=== PATIENT | female | born 1970 | race Caucasian/White ===

== ENCOUNTER → 2019-03-28 13:25 | Outpatient (CLI) | payer BC, SELFPAY ==
--- NOTE | ~2019-03-28 | MM_ITS ---
EXAMINATION: MM screening [facility] BI w macey HISTORY: Screening mammogram TECHNIQUE: Craniocaudal and mediolateral oblique 3-D tomosynthesis images were obtained and synthetic 2-D images were generated. CAD analysis was submitted and interpreted. COMPARISON: 04/13/2017, 04/05/2016, 03/20/2013 BREAST PARENCHYMAL COMPOSITION: The breasts are almost entirely fatty. FINDINGS: There is no evidence of suspicious mass, calcification, or architectural distortion to sugg est malignancy in either breast. There has been no suspicious interval change. IMPRESSION: 1. No mammographic evidence of malignancy. 2. Recommend routine screening mammography in one year. BI-RADS Category 1: Negative Reviewed, dictated and finalized at location A. LAY AND BANNER DESIGNER
== END ==
PROVIDERS: PCP Family Medicine; Visit Provider Obstetrics & Gynecology
DX: Z12.31 Encounter for screening mammogram for malignant neoplasm of breast (principal)
CPT/HCPCS: 77063; 77067

== ENCOUNTER → 2020-06-30 15:59 | Outpatient (CLI) | payer BC, SELFPAY ==
--- NOTE | ~2020-06-30 | MM_ITS ---
EXAMINATION: MM screening [facility] BI w macey HISTORY: Screening mammogram TECHNIQUE: Craniocaudal and mediolateral oblique 3-D tomosynthesis images were obtained and synthetic 2-D images were generated. CAD analysis was submitted and interpreted. COMPARISON: 03/28/2019, 04/13/2017, 04/05/2016 bilateral digital screening mammogram examinations BREAST PARENCHYMAL COMPOSITION: The breasts are almost entirely fatty. FINDINGS: There is no evidence of suspicious mass, calcification, or architectural distortion to sugg est malignancy in either breast. There has been no suspicious interval change. IMPRESSION: 1. No mammographic evidence of malignancy. 2. Recommend routine screening mammography in one year. BI-RADS Category 1: Negative Reviewed, dictated and finalized at location A.
== END ==
PROVIDERS: PCP Family Medicine; Visit Provider Obstetrics & Gynecology
DX: Z12.31 Encounter for screening mammogram for malignant neoplasm of breast (principal)
CPT/HCPCS: 77063; 77067

== ENCOUNTER → 2021-08-31 08:01 | Outpatient (CLI) | payer BC, SELFPAY ==
--- NOTE | ~2021-08-31 | MMUS_ITS ---
EXAMINATION: MM diagnostic [facility] BI w macey, US breast LT limited HISTORY: 9:00 left breast lump palpated by referring physician TECHNIQUE: ML, MLO and CC 3-D tomosynthesis images of both breasts were performed and synthetic 2-D i mages were generated. CAD analysis was submitted and interpreted. High resolution left targeted 8:00- 10:00 breast ultrasound was performed. COMPARISON: 06/30/2020, 03/28/2019, 04/23/2017, 04/05/2016 and 03/20/2013 bilateral screening mammogram ex aminations BREAST PARENCHYMAL COMPOSITION: The breasts are almost entirely fatty. FINDINGS: MAMMOGRAPHIC FINDINGS: No suspicious mass or architectural distortion, malignant calcification, skin thickening or retractio n or significant new or developing density is detected. ULTRASOUND: No suspicious mass, shadowing, cyst or other significant sonographic finding is noted between 8:00 an d 10:00 position in the left breast. IMPRESSION: 1. No mammographic evidence of malignancy 2. Routine annual mammographic screening is recommended. BI-RADS Category 1: Negative Reviewed, dictated and finalized at location A. IMPRESSION: 1. No mammographic evidence of malignancy 2. Routine annual mammographic screening is recommended. BI-RADS Category 1: Negative
== END ==
PROVIDERS: PCP Family Medicine; Visit Provider Obstetrics & Gynecology Gynecology
DX: N63.20 Unspecified lump in the left breast, unspecified quadrant (principal)
CPT/HCPCS: 76642; 77062; 77066; G0279

== ENCOUNTER → 2022-12-23 15:29 | Outpatient (CLI) | payer BC, SELFPAY ==
--- NOTE | ~2022-12-23 | MM_ITS ---
EXAMINATION: MM screening [facility] BI w macey HISTORY: Screening mammogram TECHNIQUE: Craniocaudal and mediolateral oblique 3-D tomosynthesis images were obtained and synthetic 2-D images were generated. CAD analysis was submitted and interpreted. COMPARISON: 08/31/2021, 06/30/2020, 03/28/2019, 04/23/2017 BREAST PARENCHYMAL COMPOSITION: The breasts are almost entirely fatty. FINDINGS: No suspicious mass, calcification, or architectural distortion are identified in either katelynn ast to suggest malignancy. There has been no suspicious interval change. IMPRESSION: 1. No mammographic evidence of malignancy. 2. Recommend routine screening mammography in one year. BI-RADS Category 1: Negative Reviewed, dictated and finalized at location A. PING BUILDER
== END ==
PROVIDERS: PCP Family Medicine; Visit Provider Obstetrics & Gynecology Gynecology
DX: Z12.31 Encounter for screening mammogram for malignant neoplasm of breast (principal)
CPT/HCPCS: 77063; 77067

== ENCOUNTER 2023-12-26 15:17 | Outpatient (CLI) | payer BC, SELFPAY ==
--- NOTE | ~2023-12-26 | MM_ITS ---
EXAMINATION: MM screening [facility] BI w macey HISTORY: Screening TECHNIQUE: Craniocaudal and mediolateral oblique 3-D tomosynthesis images were obtained and synthetic 2-D images were generated. CAD analysis was submitted and interpreted. COMPARISON: Examination is compared with multiple prior studies performed most recently in 12/23/2022 and dating back to 03/28/2019 BREAST PARENCHYMAL COMPOSITION: There are scattered areas of fibroglandular density. FINDINGS: Stable parenchymal pattern without suspicious microcalcifications, architectural distortion, discrete masses or significant asymmetry. IMPRESSION: 1. No mammographic or tomographic evidence to suggest the presence of malignancy. 2. Follow-up as per ACR/ACS guidelines is recommended. Reviewed, dictated and finalized at location A. STORE DEMONSTRATOR IMPRESSION: 1. No mammographic or tomographic evidence to suggest the presence of malignanc y. 2. Follow-up as per ACR/ACS guidelines is recommended.
== END 2023-12-26 15:18 | disposition home or self-care (01) ==
LOC: MICIMG 15:17
PROVIDERS: PCP Obstetrics & Gynecology Gynecology; Visit Provider Obstetrics & Gynecology Gynecology
DX: Z12.31 Encounter for screening mammogram for malignant neoplasm of breast (principal)
CPT/HCPCS: 77063; 77067

== ENCOUNTER 2024-01-12 10:53 | Outpatient (CLI) | payer BC, SELFPAY ==
--- NOTE | ~2024-01-12 | CT_ITS ---
CT of the Abdomen and Pelvis: Indication: Ventral hernia Technique: 2.5 mm axial scans were obtained through the abdomen and pelvis following intravenous adm inistration of 100 cc of Omnipaque 350. Dose reduction technique was used on this scan by utilizing a utomated exposure control and iterative reconstruction technique. The dose-length product (DLP) was 7 59.83 mGy-cm. Findings: Scans through the lung bases are unremarkable. The liver, spleen, pancreas, gallbladder, adrenals and kidneys are within normal limits. No evidence of aortic aneurysm. No lymphadenopathy. No bowel obstruction or bowel wall thickening. Evidence of prior sleeve gastrectomy. Moderate to larg e fat-containing ventral hernia is present inferior to the umbilicus. Images through the pelvis were performed. Urinary bladder unremarkable. No pelvic mass seen. No ascit es. Impression: Moderate to large fat-containing ventral hernia inferior to the umbilicus. Reviewed, dictated and finalized at [facility]. S OFFICE ASSISTANT Impression: Moderate to large fat-containing ventral hernia inferior to the umbilicus.
[2024-01-12 11:24] LABS: Estimated Glomerular Filt Rate > 60
== END 2024-01-12 10:54 | disposition home or self-care (01) ==
PROVIDERS: PCP Nurse Practitioner Family
DX: K43.6 Other and unspecified ventral hernia with obstruction, without gangrene (principal)
CPT/HCPCS: 74177; Q9967